=== PATIENT | female | born 1995 | race Caucasian/White ===

== ENCOUNTER 2024-07-30 15:08 | Outpatient (CLI) | payer OTHER, SELFPAY ==
--- NOTE | ~2024-07-30 | XR_ITS ---
EXAMINATION: XR scoliosis survey DATE: 07/30/2024 15:48 INDICATION: Scoliosis deformity of spine. TECHNIQUE: Anteroposterior and lateral views of the entire spine standing were obtained. COMPARISON: None. FINDINGS: Right femoral head stands 5 mm higher than the left. There are 12 pairs of ribs. There are 5 nonrib-bearing lumbar segments. There is 8 degrees dextrocurvature from T5 to T11 by the Blackman metho d. There is 6 degrees levocurvature from T11 to L4. IMPRESSION: 1. Spinal curvature. Reviewed, dictated and finalized at location A. IMPRESSION: 1. Spinal curvature.
== END 2024-07-30 15:09 | disposition home or self-care (01) ==
PROVIDERS: PCP Physician Assistant; Visit Provider Physician Assistant
DX: M41.9 Scoliosis, unspecified (principal)
CPT/HCPCS: 72082

== ENCOUNTER 2024-12-31 02:28 | Emergency (ER) | payer OTHER, SELFPAY ==
--- OUTSIDE RECORDS SUMMARY | 2024-12-31 02:31 | XMS_ITS | Clinical Summary ---
Author Organization [facility] Address [address] [place] [address] Care Team Providers Care Day Porter Name Role Phone Unknown, Provider Primary Care Provider Unavaila ble Source Comments [facility],non-owned Affiliates and Associated Physician Practices is amultiple site organization consisting of ambulatory clinics and hospital sitesin [place], [place], [place] and [place]. This disclosure is being madepursuant to the Care Everywhere program and may not contain all information available regarding this patient. Last updated 18.[facility] [employer] Allergies Active Allergy Reactions Criticality Noted Date Comments Penicillins Rash Medium 08/23/2023 Sulfa Drugs Rash Medium 08/23/2023 Medications * Be aware that medications may not be up to date on this document. Alwaysverify current medications with the patient. 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 Never 08/28/2023 Q2: How many drinks containi ng alcohol do you have on a typical day when you are drinking? Patient does not drink Frequency of Binge Drinking Not on file 08/19 Sex and Gender Information Value Date Recorded Sex Assigned at Not on file Gender Identity Not on file Sexual Orientation Not on file Last Filed Vital Signs Vital Sign Reading Time Taken Comments Blood Pressure 132/83 08/28/2023 2:29 PM CDT Pulse 104 08/28/2023 2:29 PM CDT Temperature 36.6 C (97.8 F) 08/28/2023 2:18 PM CDT Respiratory Rate 17 08/28/2023 2:29 PM CDT Oxygen Saturation 99% 08/28/2023 2:29 PM CDT Inhaled Oxygen Concentration - - Weight 70.3 kg (155 lb) 08/28/2023 11:21 AM CDT Height 165.1 cm (5' 5 ) 08/28/2023 11:21 AM CDT Body Mass Index 25.79 08/28/2023 11:21 AM CDT Plan of Treatment Health Maintenance Due Date Last Done Comments PAP SMEAR 1997 HIV SCREENING 01/30/2012 HEPATITIS C SCREENING 01/25/2015 DTAP/TDAP/TD VACCINES (1 - Tdap) 01/30/2016 HEPATITIS B VACCINE (1 of 3 - 19+ 3-dose series) 01/30/2016 COVID-19 VACCINE ( - 2023-2 5 season) 2024 INFLUENZA VACCINE (#1) 2024 DEPRESSION SCREENING 11/19/2024 ZOSTER VACCINE (1 of 2) 2047 HIB VACCINE Aged Out No longer eligi ble based on patient's age to complete this topic HPV VACCINE Aged Out No longer eligi ble based on patient's age to complete this topic MENINGOCOCCAL (Group B) VACCINE Aged Out No longer eligible based on patient's age to complete this topic MENINGOCOCCAL VACCINE Aged Out No katerina hussein eligible based on patient's age to complete this topic PNEUMOCOCCAL VACCINE Aged Out No long er eligible based on patient's age to complete this topic Care Teams Day Porter Relationship Specialty Start Date End Date Unknown, Provider PCP - General 08/08/23
--- OUTSIDE RECORDS SUMMARY | 2024-12-31 02:31 | XMS_ITS | Referral Summary ---
Author Organization [facility] Address [address] [place] [address] Care Team Providers Care Can Sterilizer Name Role Phone Unknown, Provider Primary Care Provider Unavaila ble Source Comments [facility],non-owned Affiliates and Associated Physician Practices is amultiple site organization consisting of ambulatory clinics and hospital sitesin [place], [place], [place] and [place]. This disclosure is being madepursuant to the Care Everywhere program and may not contain all information available regarding this patient. Last updated 18.[facility] Long Tail Allergies Active Allergy Reactions Criticality Noted Date [...] 08/28/2023 11:21 AM CDT Plan of Treatment Not on file Care Teams Can Sterilizer Relationship Specialty Start Date End Date Unknown, Provider PCP - General 08/08/23
--- OUTSIDE RECORDS SUMMARY | 2024-12-31 02:31 | XMS_ITS | Patient Health Summary ---
Author Organization [facility] Address [address] [place] [address] Care Team Providers Care Munitions Handler Name Role Phone Unknown, Provider Primary Care Provider Unavaila ble Note from [facility],non-owned Affiliates and Associated Physician Practices is amultiple site organization consisting of ambulatory clinics and hospital sitesin [place], [place], [place] and [place]. This disclosure is being madepursuant to the Care Everywhere program and may not contain all information available regarding this patient. Last updated 18.[facility] [employer] Allergies * Penicillins(Rash) -Medium Criticality * Sulfa Drugs(Rash) -Medium Criticality Medications * Be aware that medications may not be up to date on this document. Alwaysverify current medications with the patient. 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 LMA Insertion Date/Time: 08/28/2023 1:01 PM Procedure: LMA. Pretreatment: 100% O2 Induction: standard IV Patient position: supine and sniffing. Mask Ventilation: not attempted Type: gel LMA Size: 4 Number of Attempts: 1. Placement verified by: direct visualization, bilateral breath sounds, chest auscultation and CO2 monitor Dentition unchanged? Yes Procedure Start Time: 08/28/2023 1:01 PM. Procedure End Time: 08/28/2023 1:02 PM. Procedure Total Time: 1 minutes. Staff Section Anesthesia Provider: Dima Ramos MD, Performed the procedure Provider #1: Florence Waller APRN-CRNA, Performed the procedure. Provider #2: Sears, Natalia, RN, Performed the procedure. Dima Ramos MD GENERAL ANESTHESIA O RDERABLES * HCG URINE QUALITATIVE - POCT (IP) INTERFACED (08/28/2023 11:21 AM CDT) HCG Qual Urine Negative Negative 08/28/2023 11:28 AM CDT [facility] Urine URINE / Unknown 08/28/2023 1 1:21 AM CDT 08/28/2023 11:28 AM CDT Micheal Cazares MD LAB - POINT OF CARE ORDERABLES [facility] [address] [place] [phone], [facility] [phone] Care Teams Munitions Handler Relationship Specialty Start Date End Date Unknown, Provider PCP - General 08/08/23
[2024-12-31 02:33] VITALS: BP 141/99; PULSE 100; RESP 20; TEMP 36.7; O2SAT 98
--- OUTSIDE RECORDS SUMMARY | 2024-12-31 03:03 | XMS_ITS | Patient Health Summary ---
Author Organization [facility] Address [address] [place] [address] Care Team Providers Care Solar Consultant Name Role Phone Unknown, Provider Primary Care Provider Unavaila ble Note from [facility],non-owned Affiliates and Associated Physician Practices is amultiple site organization consisting of ambulatory clinics and hospital sitesin [place], [place], [place] and [place]. This disclosure is being madepursuant to the Care Everywhere program and may not contain all information available regarding this patient. Last updated 18.[facility] M-Files Allergies * Penicillins(Rash) -Medium Criticality * Sulfa [...] 25.79 08/28/2023 11:21 AM CDT Procedures * WI STRABISMUS SURG,TWO HORIZ MUSCLE(Performed 08/28/2023) Performed for [...] Urine Negative Negative 08/28/2023 11:28 AM CDT [facility] Urine URINE / Unknown 08/28/2023 1 1:21 AM CDT 08/28/2023 11:28 AM CDT Michael Cazares MD LAB - POINT OF CARE ORDERABLES [facility] [address] [place] [phone], [facility] [phone] Care Teams Solar Consultant Relationship Specialty Start Date End Date Unknown, Provider PCP - General 08/08/23
--- OUTSIDE RECORDS SUMMARY | 2024-12-31 03:03 | XMS_ITS | Referral Summary ---
Author Organization [facility] Address [address] [place] [address] Care Team Providers Care Music Supervisor Name Role Phone Unknown, Provider Primary Care Provider Unavaila ble Source Comments [facility],non-owned Affiliates and Associated Physician Practices is amultiple site organization consisting of ambulatory clinics and hospital sitesin [place], [place], [place] and [place]. This disclosure is being madepursuant to the Care Everywhere program and may not contain all information available regarding this patient. Last updated 18.[facility] [employer] Allergies Active Allergy Reactions Criticality Noted Date [...] of Treatment Not on file Care Teams Music Supervisor Relationship Specialty Start Date End Date Unknown, Provider PCP - General 08/08/23
--- OUTSIDE RECORDS SUMMARY | 2024-12-31 03:03 | XMS_ITS | Clinical Summary ---
Author Organization [facility] Address [address] [place] [address] Care Team Providers Care Director Of Database Marketing Name Role Phone Unknown, Provider Primary Care Provider Unavaila ble Source Comments [facility],non-owned Affiliates and Associated Physician Practices is amultiple site organization consisting of ambulatory clinics and hospital sitesin [place], [place], [place] and [place]. This disclosure is being madepursuant to the Care Everywhere program and may not contain all information available regarding this patient. Last updated 18.[facility] [employer] Allergies Active Allergy Reactions Criticality Noted Date [...] age to complete this topic Care Teams Director Of Database Marketing Relationship Specialty Start Date End Date Unknown, Provider PCP - General 08/08/23
--- NOTE | 2024-12-31 03:35 | ED.EAR ---
HPI - Ear Problem General Chief complaint: Ear Stated complaint: feels like R ear is swollen/clogged hurting jaw Time Seen by Provider: 12/31/24 02:58 Source: patient and other Mode of arrival: ambulatory Limitations: no limitations History of Present Illness HPI Narrative: Patient presents with her R ear feeling swollen and glogged. Described as stabbing and starting to hurt her jaw. She denies any associated dental pain but has had similar issue when she had pain in her teeth previously so used orajel in addition to aspirin and Tylenol before presenting. Started at 8:30pm. Also having nasal congestion and rhinorrhea. Associated sore throat though now better. Has had a cough. No recent travel including no barotrauma/air travel. No foreign body insertion, including no Q tip. No drainage, fever, chills. Has had sinus issues previously. Related Data Allergies Allergy/AdvReac Type Severity Reaction Status Date / Time Penicillins Allergy Mild Unknown Verified 12/31/24 02:35 Sulfa (Sulfonamide Allergy Mild Unknown Verified 12/31/24 02:35 Antibiotics) [facility] Surgical History Surgical History H/O tympanostomy @9 mos old Exam Narrative: GENERAL: Well-appearing, well-nourished, and in no acute distress. HEAD: Normocephalic, atraumatic. No tenderness or swelling over mastoids. No swelling over face or jaw, no erythema. EYES: Non injected, non icteric ENT: No epistaxis. Dental caries/fractured tooth #30 & 31. Bilateral tonsillar swelling and tonsillar exudate. no trismus. Uvula midline. Bilateral TMs visualized without effusion/bulging. Mild erythema in auditory canal. No tenderness to percussion of sinuses. NECK: Supple. Bilateral lymphadenopathy. CHEST: Speaking in full sentences. No respiratory distress. HEART: Regular rate and rhythm. . ABDOMEN: Soft, nondistended. EXTREMITIES: Normal range of motion. No lower extremity edema. SKIN: Warm, dry, no rash. NEURO: No focal deficits. Alert and oriented x3. PSYCH: Normal mood and affect. Course Vital Signs Vital signs: Vital Signs Temperature 98.0 F 12/31/24 02:33 Pulse Rate 100 12/31/24 02:33 Respiratory Rate 20 12/31/24 02:33 Blood Pressure 141/99 H 12/31/24 02:33 Pulse Oximetry 98 12/31/24 02:33 Oxygen Delivery Room Air 12/31/24 02:33 Temperature 98.0 F 12/31/24 02:33 Pulse Rate 100 12/31/24 02:33 Respiratory Rate 20 12/31/24 02:33 Blood Pressure 141/99 H 12/31/24 02:33 Pulse Oximetry 98 12/31/24 02:33 Oxygen Delivery Room Air 12/31/24 02:33 Medical Decision Making MDM Narrative Medical decision making narrative: Patient presents with R ear swelling and sensation of it feeling clogged. Has had nasal congestion/rhinorrhea. Had a sore throat now better. Has had a cough. This has previously happened when she had dental issues but no dental pain now. In the emergency department she is afebrile with vital signs that show hypertension. Will obtain viral swab. Patient's Centor score is 2 points for swelling and exudates on tonsils as well as lymphadenopathy. Will also obtain strep swab. Swabs negative. Prescribed analgesic medication as well as nasal decongestant. Given the appearance of teeth and concern for developing infection (though not currenty present), also will prescribe antibiotics. Discharged in stable condition Differential Diagnosis Differential Diagnosis: otitis eterna, otitis media, acute viral syndrome; pharyngitis (Strep or otherwise); considered dental pain/infection/abscess Vital Signs Vital Signs: Vital Signs Temperature 98.0 F 12/31/24 02:33 Pulse Rate 100 12/31/24 02:33 Respiratory Rate 20 12/31/24 02:33 Blood Pressure 141/99 H 12/31/24 02:33 Pulse Oximetry 98 12/31/24 02:33 Oxygen Delivery Room Air 12/31/24 02:33 Temperature 98.0 F 12/31/24 02:33 Pulse Rate 100 12/31/24 02:33 Respiratory Rate 20 12/31/24 02:33 Blood Pressure 141/99 H 12/31/24 02:33 Pulse Oximetry 98 12/31/24 02:33 Oxygen Delivery Room Air 12/31/24 02:33 Lab Data Lab results reviewed: Yes I reviewed the patient's lab results. Labs: Lab Results 12/31/24 12/31/24 Range/Units 03:54 04:30 Influenza A (RT-PCR) Negative (Negative) Influenza B (RT-PCR) Negative (Negative) RSV (RT-PCR) Negative (Negative) SARS-CoV-2 RNA (RT-PCR) Negative (Negative) Group A Strep (PCR) Not detected (Negative) Discharge Plan Discharge Clinical Impression: Otalgia of right ear, Dental caries, Broken tooth, Jaw pain Patient Disposition: Home, Self-Care Condition: Stable Instructions: Antibiotic Form, Earache (ED) Additional Instructions: Try the nasal decongestant to reduce some of the inflammation which is likely contributing. Acetaminophen/Tylenol (maximum 4000 mg per day) is safe to take with NSAIDs (ibuprofen/Motrin) for pain relief. You likely have a viral process (though tested negative for covid, influenza a, influenza B, and RSV) but you are being prescribed a course of antibiotics that you should take and follow up with a dentist, especially if pain not improving after initial treatment. You also tested negative for strep. Follow-up with your primary care physician. Return to the emergency department with any new or worsening symptoms such as fever greater than 100.4? F, facial swelling, discharge from ear, etc. Patient Language: Divehi Prescriptions: New ibuprofen 600 mg tablet 600 mg PO TID PRN (Reason: pain) Qty: 30 0RF acetaminophen 500 mg capsule 1,000 mg PO Q6H PRN (Reason: pain) Qty: 30 0RF Afrin (oxymetazoline) 0.05 % mist 2 spray intranasal Q12H PRN (Reason: nasal congestion) 3 Days Qty: 15 0RF clindamycin HCl [Cleocin HCl] 300 mg capsule 300 mg PO BID 7 Days Qty: 14 0RF Follow-up/Referrals: Hiwot,YASMINE Montes [Primary Care Provider] - Stand Alone Forms: Work/School Release IP Time of Disposition: 05:30
[2024-12-31] MEDS: IBUPROFEN 600 MG TABLET PO (04:27)
[2024-12-31] MEDS: dexAMETHasone 2 MG TABLET 10 MG PO (04:28)
[2024-12-31 04:33] LABS: Influenza A QL RT-PCR Negative (Negative); Influenza B QL RT-PCR Negative (Negative); RSV RNA, RT-PCR Negative (Negative); SARS-CoV-2 RNA PCR Negative (Negative)
[2024-12-31 05:00] LABS: Strep Group A RT-PCR NOT DETECTED (Negative)
[2024-12-31] MEDS: HYDROcodone/acetaminophen (*CRX) 5-325 MG TABLET 1 TAB PO (05:38)
== END 2024-12-31 06:17 | disposition home or self-care (01) ==
PROVIDERS: Emergency Provider Student in an Organized Health Care Education/Training Program; PCP Physician Assistant
DX: H92.01 Otalgia, right ear (principal); K02.9 Dental caries, unspecified; K03.81 Cracked tooth; R68.84 Jaw pain; Z20.822 Contact with and (suspected) exposure to COVID-19
CPT/HCPCS: 87637; 87651; 99283; A9270; J8540